=== PATIENT | male | born 1995 | race Caucasian/White ===

== ENCOUNTER 2025-03-09 07:41 | Day surgery (SDC) | payer OTHER ==
[2025-03-02 12:39] LABS: BASOPHILS % (AUTO) 0.4 % (0-1); EOSINOPHILS # (AUTO) 0.5 X10'3 (0-0.9); EOSINOPHILS % (AUTO) 8.1 % (0-6); LYMPHOCYTES # (AUTO) 2.7 X10'3 (1.1-4.8); LYMPHOCYTES % (AUTO) 44.5 % (21-51); MEAN CORPUSCULAR HEMOGLOBIN 28.7 PG (27.0-31.0); MEAN CORPUSCULAR HGB CONC 33.9 g/dL (33.0-36.5); MEAN CORPUSCULAR VOLUME 84.6 FL (78-98); MEAN PLATELET VOLUME 7.7 FL (7.4-10.4); MONOCYTES # (AUTO) 0.4 X10'3 (0-0.9); MONOCYTES % (AUTO) 7.2 % (2-12); NEUTROPHILS # (AUTO) 2.5 X10'3 (1.8-7.7); NEUTROPHILS % (AUTO) 39.8 % (42-75); PRE OP HEMATOCRIT 45.7 % (42.0-52.0); PRE OP HEMOGLOBIN 15.5 g/dL (14.0-17.9); PRE OP PLATELET COUNT 271 X10'3 (140-440); PRE OP WHITE BLOOD COUNT 6.2 10'3 (4.8-10.8); RED CELL DISTRIBUTION WIDTH 13.2 % (11.5-14.5)
[2025-03-02 12:55] LABS: ALBUMIN 4.1 G/DL (3.4-5.0); ALBUMIN/GLOBULIN RATIO 1.2 (1.1-1.5); ALKALINE PHOSPHATASE 84 IU/L (46-116); BLOOD UREA NITROGEN 12 MG/DL (7-18); BUN/CREATININE RATIO 14.1 (10.0-20.0); CHLORIDE 105 MMOL/L (99-107); CREATININE 0.85 MG/DL (0.60-1.10); PRE OP ALT 38 U/L (30-65); PRE OP ANION GAP 5 (8-16); PRE OP AST 23 U/L (10-37); PRE OP BILIRUB, TOTAL 0.8 MG/DL (0.0-1.0); PRE OP GLUCOSE 86 MG/DL (70-104); PRE OP POTASSIUM 4.2 MMOL/L (3.4-5.1); PRE OP SODIUM 141 MMOL/L (135-145); TOTAL CARBON DIOXIDE 30.7 MMOL/L (24-32); TOTAL PROTEIN 7.4 G/DL (6.4-8.2); eGFR > 90 ML/MIN
[2025-03-09] VITALS (17 sets, daily range): BP systolic 90–144; BP diastolic 50–70; PULSE 59–99; RESP 10–16; TEMP 98; O2SAT 97–100
[~2025-03-09] VITALS: Ht 172.7 cm; Wt 77.1 kg
[~2025-03-09 07:41] MED LIST: BUPIVAcaine 2.5mg/ml inj 50ml vial (contains preservative) ONE; CETI-194 PO; LIDOcaine 1% 30ml preserv. free vial ONE; famotidine 20mg tablet PO ONE; ringers solution, lacted 1,000 ML IV SCH
[2025-03-09] MEDS: ceFAZolin 2gm in dextrose, iso 50 ML IV ONE (07:57)
[2025-03-09] MEDS ORDERED: morphine 4 MG/ML inj SYRINge IV PRN (08:15)
[2025-03-09] MEDS ORDERED: meperidine/PF 25mg/ml syringe IV PRN ×2 (08:15)
[2025-03-09] MEDS ORDERED: proCHLORperazine 10 MG/2 ml inj IV PRN (08:15)
[2025-03-09] MEDS ORDERED: enalaprilat 1.25mg/ml 2ml vial IV PRN (08:15)
[2025-03-09] MEDS ORDERED: labetalol 20mg/4ml (5mg/ml) syringe IV PRN (08:15)
[2025-03-09] MEDS ORDERED: morphine 2 MG/ML inj. syringe IV PRN (08:15)
[2025-03-09] MEDS ORDERED: ringers solution, lacted 1,000 ML IV SCH (08:15)
[2025-03-09] MEDS: ondansetron/PF 4mg/2ml inj ONE (08:25)
[2025-03-09] MEDS ORDERED: midazolam 1 mg/ML 2ml injection ONE (08:45)
[2025-03-09] MEDS ORDERED: LIDOcaine 1%/PF 5ML 10 MG/ML VIAL ONE (08:46)
[2025-03-09] MEDS ORDERED: propofol inj 20 ML IV ONE (08:46)
[2025-03-09] MEDS ORDERED: fentaNYL /PF 50mcg/ml 5ml ampule ONE (08:46)
[2025-03-09] MEDS ORDERED: sevoflurane 250ml liquid IH ONE (09:07)
[2025-03-09] MEDS ORDERED: rocuronium 10mg/ml inj IV ONE (09:12)
[2025-03-09] MEDS ORDERED: ketorolac trometh 30MG/ML vial 30 MG/ML VIAL ONE (09:18)
[2025-03-09] MEDS ORDERED: ondansetron/PF 4mg/2ml inj ONE (09:19)
[2025-03-09] MEDS ORDERED: acetaminophen 1,000mg/100ml IV 100 ML IV ONE (09:19)
[2025-03-09] MEDS: BUPIVAcaine/PF 2.5 mg/ml (0.25%) 30ml vial IJ ONE (09:21)
[2025-03-09] MEDS ORDERED: ondansetron 4mg rapidly disintigrating tab PO PRN (10:35)
--- NOTE | 2025-03-09 10:41 | OPERATIVE REPORT ---
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 Patient was placed supine and general anesthesia was induced. Patient's abdomen was prepped and draped in standard sterile fashion. Preoperative antibiotics were given. Supraumbilical incision was made to allow for standard Soliman entry technique. Laparoscope was inserted after insufflation. Bilateral, 8.5 mm robotic trochars were placed under laparoscopic guidance following administration of local anesthetic. The da [place] robotic arm was docked to the patient and instruments placed intra-abdominally under laparoscopic visualization. The left hemipelvis was examined and showed no evidence of left inguinal hernia. A direct hernia was identified on the right side. Hernia sac was moderate in size. A rent was created in the peritoneum from the median umbilical fold and carried out laterally towards the anterior superior iliac spine. Preperitoneal flap was created and carried down to the symphysis pubis. The retropubic space of [place] was developed and the bladder swept medially. Dissection was carried out laterally until a direct hernia sac was identified. This was small-moderate in size. Hernia sac was completely dissected away from direct space and reduced. The critical view of the myopectineal orifice was achieved. Dissection was carried out laterally to allow space for mesh deployment. Peritoneum was dissected away from the cord structures. An extra- large, Dextile mesh and suture was passed intra-abdominally. Mesh was laid in the preperitoneal space covering both indirect, direct, and potential femoral and obturator hernias. Mesh laid without wrinkles or folds. 3 tacking sutures using 0 Ethibond were used to fix the mesh at the symphysis pubis, rectus a bdominis, and just anterior to the anterior superior iliac spine. The peritoneal rent was then closed with running, 2/0, absorbable locking suture. [place] were retrieved. Abdomen was deflated and secondary trochars removed. Fascia at the umbilical port site was closed with 0 Vicryl sutures. Skin incisions were closed with 4-0 Monocryl sutures in a subcuticular fashion. Sterile dressings were applied. Patient was awakened and taken to the postanesthesia care unit in stable condition. Counts repoted as correct: Yes MCIHAEL HEARD MD Mar 09, 2025 10:41
[2025-03-09] MEDS ORDERED: meperidine/PF 25mg/ml syringe ONE (10:47)
[2025-03-09] MEDS: meperidine/PF 25mg/ml syringe IV PRN (10:49)
[2025-03-09] MEDS: ondansetron/PF 4mg/2ml inj IV PRN (12:07)
[2025-03-09] MEDS: HYDROcodone/acetaminophen 5mg/325mg tablet PO PRN (12:48)
== END 2025-03-09 13:07 | disposition home or self-care (01) ==
LOC: PAS 07:41
PROVIDERS: ATTEND Surgery
DX: K40.90 Unilateral inguinal hernia, without obstruction or gangrene, not specified as recurrent (principal); Z79.899 Other long term (current) drug therapy; Z98.890 Other specified postprocedural states
CPT/HCPCS: 36415; 49650; 80053; 82948; 85025; C1781; J0131; J0690; J1100; J1885; J2003; J2175; J2250; J2405; J2704; J2710; J3010; J3490; J7030; J7120; S2900; Z7506; Z7508; Z7512; A4215; A4618